=== PATIENT | male | born 1960 | race Caucasian/White ===

== ENCOUNTER 2016-11-06 14:14 | Emergency (ER) | payer SELFPAY ==
[~2016-11-06] VITALS: Ht 177.8 cm; Wt 89.0 kg
[2016-11-06 14:21] VITALS: Ht 177.8 cm; Wt 89.0 kg
[2016-11-06] MEDS ORDERED: ACETAMINOPHEN 325 MG TAB PO ONE (14:30)
[2016-11-06] MEDS ORDERED: DIPHTH/TET/ACEL PERTUSS (ADULT) 0.5 ML VIAL IM* ONE (14:30)
[2016-11-06] MEDS ORDERED: NEOM28OI TP (14:39)
[2016-11-06] MEDS ORDERED: IBUP-1542 PO (14:39)
--- NOTE | 2016-11-06 14:42 | ERD ---
ER Documentation Chief Complaint Date/Time DATE: 11/06/16 TIME: 14:41 Chief Complaint "cooking oil spilled on l hand at 0900 today" HPI This 55-year-old male complains of some blisters on his left hand after cooking and splint some hot oil. Denies any bleeding, restricted range of motion weakness. His tetanus is not up-to-date. ROS All systems reviewed and are negative except as per history of present illness. Medications Home Meds Active Scripts Neomycin Cadena/Bacitrac Zn/Poly (Triple Antibiotic Ointment) 28 Gm Oint...g., 28 GM TP TID for 7 Days Prov:RAE BUCHANAN MD 11/06/16 Ibuprofen* (Motrin*) 600 Mg Tab, 600 MG PO Q6, #15 TAB Prov:RAE BUCHANAN MD 11/06/16 Allergies Allergies: Coded Allergies: No Known Allergy (Unverified , 11/06/16) PMhx/Soc Medical and Surgical Hx: pt denies Medical Hx, pt denies Surgical Hx Hx Alcohol Use: No Hx Substance Use: No Hx Tobacco Use: No Physical Exam Vitals Vital Signs Date Time Temp Pulse Resp B/P Pulse Ox O2 Delivery O2 Flow Rate FiO2 11/06/16 14:21 97.8 77 18 146/83 98 Physical Exam Const: [] Alert, [id number] per Head: Atraumatic Eyes: Normal Conjunctiva ENT: Normal External Ears, Nose and Mouth. Neck: Full range of motion..~ No meningismus. Resp: Clear to auscultation bilaterally Cardio: Regular rate and rhythm, no murmurs Abd: Soft, non tender, non distended. Normal bowel sounds Skin: No petechiae or rashes. On the dorsum left hand there is some slight redness extending from the distal wrist to the first and second metacarpal area and dorsum of the thumb. There is no circumferential lesions there is a few small blisters. There is no streaking or induration. There are no open wounds. Back: No midline or flank tenderness Ext: No cyanosis, or edema Neur: Awake and alert Psych: Normal Mood and Affect Results 24 hrs Current Medications Medications (Trade) Dose Ordered Sig/Sasha Route PRN Reason Start Time Stop Time Status Last Admin Dose Admin Acetaminophen (Tylenol Tab) 650 mg ONCE ONCE PO 11/06/16 14:30 5/14/17 14:31 DC 11/06/16 14:36 Diphtheria/ Tetanus/Acell Pertussis (Adacel) 0.5 ml ONCE ONCE IM* 11/06/16 14:30 11/06/16 14:31 DC 11/06/16 14:36 Procedures/MDM Patient presents with signs and symptoms of a second-degree burn with less than 5% body surface area which is not circumferential shows no evidence of infection. Patient was treated with wound care with triple antibiotic and Tylenol. Patient was given a tetanus booster. Patient was discharged home instructions for wound care with triple antibiotic, ibuprofen for pain instructions for wound check in 2 days. The patient was stable with no new complaints during the ER course. Clinically, there is no current evidence to suggest meningitis, sepsis, acute abdomen, pneumonia, acute coronary syndrome, pulmonary embolism, or any other emergent condition appearing to require further evaluation or hospitalization. The patient should certainly return for any new or worsening symptoms per the aftercare instructions. They should otherwise follow-up with her primary care doctor for reevaluation this week. Departure Diagnosis: Primary Impression: Burn injury Condition: Stable Patient Instructions: Burn, Second Degree Additional Instructions: CHEQU 2 VOSS PARA PREM DOMINGUEZPTOMANA. RAE BUCHANAN MD November 06, 2016 14:42
== END 2016-11-06 14:59 | disposition home or self-care (01) ==
LOC: FTE 14:14
DX: T23.202A Burn of second degree of left hand, unspecified site, initial encounter (principal); X10.2XXA Contact with fats and cooking oils, initial encounter; Y92.9 Unspecified place or not applicable; Z23 Encounter for immunization
CPT/HCPCS: 90471; 90715

== ENCOUNTER 2016-11-10 10:11 | Emergency (ER) | payer SELFPAY ==
[~2016-11-10] VITALS: Ht 172.7 cm; Wt 87.5 kg
[~2016-11-10 10:11] MED LIST: IBUP-1542 PO; NEOM28OI TP
[2016-11-10 10:29] VITALS: Ht 172.7 cm; Wt 87.5 kg
--- NOTE | 2016-11-10 11:30 | ERA ---
ER Documentation Chief Complaint Date/Time DATE: 11/10/16 TIME: 11:25 Chief Complaint left hand burn from work but pain cont today HPI 55-year-old male returns to the emergency department for chief complaint of having to return to work. Patient sustained a hand burn at work 3 days ago. Patient was evaluated and treated by Dr. Al. Was diagnosed with a second- degree burn. Patient has not filled his antibiotics. Patient denies excessive pain, discharge, change in sensation. ROS All systems reviewed and are negative except as per history of present illness. Medications Home Meds Active Scripts Neomycin Cadena/Bacitrac Zn/Poly (Triple Antibiotic Ointment) 28 Gm Oint...g., 28 GM TP TID for 7 Days Prov:RAE AL MD 11/06/16 Ibuprofen* (Motrin*) 600 Mg Tab, 600 MG PO Q6, #15 TAB Prov:ARE AL MD 11/06/16 Allergies Allergies: Coded Allergies: No Known Allergy (Unverified , 11/06/16) PMhx/Soc Medical and Surgical Hx: pt denies Medical Hx, pt denies Surgical Hx Hx Alcohol Use: No Hx Substance Use: No Hx Tobacco Use: No Physical Exam Vitals Vital Signs Date Time Temp Pulse Resp B/P Pulse Ox O2 Delivery O2 Flow Rate FiO2 11/10/16 10:29 97.9 79 18 113/73 97 Physical Exam Const: Azeri-speaking 55-year-old male presenting with son who is the missing persons investigator and seems reliable. Head: Atraumatic Eyes: Normal Conjunctiva ENT: Normal External Ears, Nose and Mouth. Neck: Full range of motion..~ No meningismus. Resp: Clear to auscultation bilaterally Cardio: Regular rate and rhythm, no murmurs Abd: Soft, non tender, non distended. Normal bowel sounds Skin: No petechiae or rashes. Healing second-degree burn over the left hand. Back: No midline or flank tenderness Ext: No cyanosis, or edema Neur: Awake and alert. Neurovascularly intact bilaterally. Radial pulses 2 + bilaterally. Psych: Normal Mood and Affect Procedures/MDM Patient is a 55-year-old male who presents wanting another work release as he feels he can go back to work with his current condition. On evaluation the patient had his burn but healing appropriately. Gave the patient today off in order to go to a primary care provider or his employer's work comp to be evaluated for possible time off work. At this time of low suspicion for infection. The patient has not filled his antibiotics or ibuprofen. I have told him that he needs to do this and infection is not arise. Departure Diagnosis: Primary Impression: Pain of hand Qualified Code: M79.642 - Pain of left hand Additional Impression: Burn, hands, second degree Qualified Code: T23.202D - Burn, hands, second degree, left, subsequent encounter Condition: Stable Patient Instructions: Wound Check, Burn F/U (No Infection) Additional Instructions: Follow-up with primary care provider or employers work comp provider for further evaluation. Take antibiotics as prescribed. CECE GUSMAN PA-C November 10, 2016 11:30
== END 2016-11-10 11:02 | disposition home or self-care (01) ==
LOC: FTE 10:11
DX: T23.202D Burn of second degree of left hand, unspecified site, subsequent encounter (principal); X19.XXXD Contact with other heat and hot substances, subsequent encounter
CPT/HCPCS: 99282